=== PATIENT | female | born 1990 | race African-American/Black ===

== ENCOUNTER 2018-12-23 23:59 | Emergency (ER) | payer OTHER, SELFPAY ==
[2018-12-24] MEDS ORDERED: diphenhydrAMINE 50 MG/ML VIAL ONE (00:51)
[2018-12-24] MEDS ORDERED: Metoclopramide HCl 10 MG/2 ML VIAL ONE (00:51)
== END 2018-12-24 02:07 | disposition home or self-care (01) ==
LOC: ERS 23:59
DX: R51 Headache (principal); F17.210 Nicotine dependence, cigarettes, uncomplicated
CPT/HCPCS: 96365; 96375; J1200; J2765

== ENCOUNTER 2019-01-26 09:03 | Emergency (ER) | payer SELFPAY | END 2019-01-26 09:40 | disposition home or self-care (01) | LOC: ERS 09:03 | DX: L30.9 Dermatitis, unspecified (principal); Z71.6 Tobacco abuse counseling; F17.210 Nicotine dependence, cigarettes, uncomplicated | CPT/HCPCS: 99406 ==

== ENCOUNTER 2021-09-05 21:52 | Emergency (ER) | payer SELFPAY ==
[2021-09-05] MEDS ORDERED: Acetaminophen 500 MG TAB ONE (22:35)
[2021-09-05 23:16] LABS: #Basophils 0.1 thou/uL (0.0-0.2); #Eosinphils 0.5 thou/uL (0.0-0.7); #Lymphocytes 1.7 thou/uL (1.20-3.40); #Monocytes 0.9 thou/uL (0.11-0.59); #Neutrophils 5.8 thou/uL (1.40-6.50); %Basophils 0.6 % (0.0-1.0); %Eosinophils 5.1 % (0.0-10.0); %Lymphocytes 18.6 % (21.0-51.0); %Monocytes 10.1 % (0.0-10.0); %Neutrophils 65.5 % (42.0-75.0); Hemoglobin 10.2 g/dL (12.0-16.0); Mean Corpuscular HGB CONC 32.1 g/dL (32.0-36.0); Mean Corpuscular Hemoglobin 20.7 pg (27.0-31.0); Mean Corpuscular Volume 64.5 fL (78.0-98.0); Mean Platelet Volume 10.7 fL (7.4-10.4); Platelet Count 394 thou/uL (130-400); RBC Distribution Width 18.3 % (11.5-14.5); Red Blood Cell (RBC) Count 4.91 mill/uL (4.20-5.40); Reflex for Review?? NO; White Blood Cell (WBC) Count 8.9 thou/uL (4.8-10.8)
[2021-09-05 23:24] LABS: ALT (SGPT) 12 U/L (8-55); AST (SGOT) 20 U/L (5-34); Albumin 3.8 g/dL (3.5-5.0); Alkaline Phosphatase 78 U/L (40-110); Anion Gap 10 mmol/L (10-20); BUN (Urea Nitrogen) 13 mg/dL (7.0-18.7); Bilirubin, Total 0.2 mg/dL (0.2-1.2); Calc. Creatinine Clearance 0 mL/min (70-130); Calcium 9.1 mg/dL (7.8-10.44); Carbon Dioxide 25 mmol/L (22-29); Chloride 106 mmol/L (98-107); Globulin 3.6 g/dL (2.4-3.5); Glucose 100 mg/dL (70-105); Potassium 4.3 mmol/L (3.5-5.1); Protein, Total 7.4 g/dL (6.0-8.3); Sodium 137 mmol/L (136-145)
[2021-09-05] MEDS ORDERED: Ketorolac Tromethamine 30 MG/ML VIAL ONE (23:46)
[2021-09-06 16:31] LABS: SARS-CoV-2 PCR by NAA Not Detected (NotDetected)
== END 2021-09-06 00:40 | disposition home or self-care (01) ==
LOC: ERS 21:52
DX: R05.9 Cough, unspecified (principal); G43.909 Migraine, unspecified, not intractable, without status migrainosus; F17.210 Nicotine dependence, cigarettes, uncomplicated; Z20.822 Contact with and (suspected) exposure to COVID-19
CPT/HCPCS: 71045; 80053; 83605; 84484; 85025; 93005; 96374; J1885; U0003; U0005

== ENCOUNTER 2023-05-01 12:46 | Emergency (ER) | payer MEDICAID | END 2023-05-01 13:28 | disposition home or self-care (01) | LOC: ERS 12:46 | DX: N64.52 Nipple discharge (principal); F17.210 Nicotine dependence, cigarettes, uncomplicated | CPT/HCPCS: 99283 ==